=== PATIENT | male | born 1990 | race American Indian/Alaskan Native ===

== ENCOUNTER 2018-12-21 20:26 | Emergency (ER) | payer SELFPAY ==
[2018-12-21 20:35] VITALS: BP 143/81
[2018-12-21 21:29] LABS: Hematocrit 36.3 % (35.5-45.6); Hemoglobin 11.3 gm/dl (11.8-15.2); Mean Corpuscular HGB Conc 31 % (32-34); Platelet Count 218 K/mm3 (140-440); Red Blood Count 5.42 M/mm3 (3.65-5.03)
[2018-12-21 21:33] LABS: Mean Corpuscular Volume 67 fl (84-94)
[2018-12-21 21:34] LABS: Red Cell Distribution Width 22.2 % (13.2-15.2)
[2018-12-21 21:50] LABS: BUN/Creatinine Ratio 13; Blood Urea Nitrogen 12 mg/dL (9-20); Calcium 9.5 mg/dL (8.4-10.2); Hemolysis Index 7
[2018-12-22 01:07] LABS: Bilirubin,Urine NEG (Negative); Blood,Urine NEG (Negative); Color,Urine Yellow (Yellow); Mucus,Urine FEW /HPF; Protein,Urine <15 mg/dL mg/dL (Negative); RBC,Urine < 1.0 /HPF (0.0-6.0); Urobilinogen,Urine < 2.0 mg/dL (<2.0); WBC,Urine < 1.0 /HPF (0.0-6.0)
[2018-12-22] MEDS ORDERED: IBUPROFEN PO ONE (01:40)
[2018-12-22] MEDS ORDERED: IBUPROFEN ONE (01:42)
[2018-12-22] MEDS ORDERED: ULTRAM ONE (03:20)
[2018-12-22] MEDS ORDERED: ULTRAM PO ONE (03:21)
--- NOTE | 2018-12-22 03:54 | Emergency Department Report ---
ED General Adult HPI - General Chief complaint: Urogenital-Male Stated complaint: HERNIA ON GROIN AREA Time Seen by Provider: 12/22/18 02:41 Source: patient Mode of arrival: Ambulatory Limitations: No Limitations - History of Present Illness Initial comments: Pt is a 28 y/o aam with history of left inguinal hernia for past year states exacerbation for the past week with pain stays unable to reduce her home is no nausea no vomiting no fever no chills no constipation no diarrhea patient has mild left groin swelling patient is on ambulatory however pain is exacerbated by bending twisting lifting pain is reduced with nothing Onset/Timin -: year(s), unknown (exacerbation 1 week ) Location: pelvis (left groin ) Radiation: non-radiation Severity scale (0 -10): 4 Quality: sharp Consistency: constant Improves with: none Worsens with: movement Associated Symptoms: denies: fever/chills, nausea/vomiting Treatments Prior to Arrival: none - Related Data Previous Rx's Medication Instructions Recorded Last Taken Type traMADol [Ultram] 50 mg PO Q6HR PRN #12 tablet 12/22/18 Unknown Rx Allergies Allergy/AdvReac Type Severity Reaction Status Date / Time No Known Allergies Allergy Verified 12/22/18 03:38 ED Review of Systems ROS: Stated complaint: HERNIA ON GROIN AREA Other details as noted in HPI Constitutional: denies: chills, fever Eyes: denies: eye pain, eye discharge, vision change ENT: denies: ear pain, throat pain Respiratory: denies: cough, shortness of breath, wheezing Cardiovascular: denies: chest pain, palpitations Endocrine: no symptoms reported Gastrointestinal: denies: abdominal pain, nausea, vomiting, diarrhea, constipation, hematemesis, melena, hematochezia Genitourinary: other (left inquinal swelling pain ). denies: urgency, dysuria, frequency, hematuria, discharge, testicular pain, testicular mass Musculoskeletal: denies: back pain, joint swelling, arthralgia Skin: denies: rash, lesions Neurological: denies: headache, weakness, paresthesias Psychiatric: denies: anxiety, depression Hematological/Lymphatic: denies: easy bleeding, easy bruising ED Past Medical Hx - Past Medical History Previous Medical History?: No Additional medical history: HERNIA LEFT GROIN - Surgical History Additional Surgical History: RLL [facility] PINS 05/2018- NECK SURGERY 2011 - Social History Smoking Status: Current Every Day Smoker Substance Use Type: None - Medications Home Medications: Home Medications Medication Instructions Recorded Confirmed Last Taken Type traMADol [Ultram] 50 mg PO Q6HR PRN #12 tablet 12/22/18 Unknown Rx ED Physical Exam - General Limitations: No Limitations General appearance: alert, in no apparent distress - Head Head exam: Present: atraumatic, normocephalic - Eye Eye exam: Present: normal appearance, PERRL Pupils: Present: normal accommodation - ENT ENT exam: Present: mucous membranes moist - Neck Neck exam: Present: normal inspection - Respiratory Respiratory exam: Present: normal lung sounds bilaterally. Absent: respiratory distress, wheezes, stridor, chest wall tenderness - Cardiovascular Cardiovascular Exam: Present: regular rate, normal rhythm, normal heart sounds. Absent: rubs, gallop, clicks - GI/Abdominal GI/Abdominal exam: Present: soft, tenderness (Left inguinal tenderness mild swelling ), normal bowel sounds, hernia (left inquinal hernia reproducible, no thrill no bruit no erythema drainage no fever ). Absent: guarding, rebound, rigid, organomegaly, bruit, pulsatile mass - Rectal Rectal exam: Present: deferred - exam: Present: other (no thrill no bruit ). Absent: testicular tenderness, urethral discharge, scrotal swelling, vertical testicular lie - Extremities Exam Extremities exam: Present: normal inspection, normal capillary refill. Absent: full ROM, tenderness - Back Exam Back exam: Present: normal inspection, full ROM. Absent: tenderness, CVA tenderness (R), CVA tenderness (L), muscle spasm, paraspinal tenderness, vertebral tenderness, rash noted - Neurological Exam Neurological exam: Present: alert, oriented X3, CN II-XII intact, normal gait, reflexes normal - Psychiatric Psychiatric exam: Present: normal affect, normal mood - Skin Skin exam: Present: warm, dry, intact, normal color. Absent: rash ED Course Vital Signs 12/21/18 12/21/18 20:33 20:59 Temperature 98.1 F 98.1 F Pulse Rate 90 88 Respiratory 18 18 Rate Blood Pressure 143/81 143/81 O2 Sat by Pulse 98 98 Oximetry ED Medical Decision Making - Lab Data Result diagrams: 12/21/18 21:20 12/21/18 21:20 Labs 12/21/18 12/21/18 12/22/18 21:20 21:20 00:21 WBC 8.6 RBC 5.42 H Hgb 11.3 L Hct 36.3 MCV 67 L MCH 21 L MCHC 31 L RDW 22.2 H Plt Count 218 Sodium 139 Potassium 4.1 Chloride 102.1 Carbon Dioxide 29 Anion Gap 12 BUN 12 Creatinine 0.9 Estimated GFR > 60 BUN/Creatinine Ratio 13 Glucose 119 H Calcium 9.5 Urine Color Yellow Urine Turbidity Clear Urine pH 5.0 Ur Specific Commodore 1.016 Urine Protein <15 mg/dl Urine Glucose (UA) Neg Urine Ketones Neg Urine Blood Neg Urine Nitrite Neg Urine Bilirubin Neg Urine Urobilinogen < 2.0 Ur Leukocyte Esterase Neg Urine WBC (Auto) < 1.0 Urine RBC (Auto) < 1.0 U Epithel Cells (Auto) < 1.0 Urine Mucus Few - Radiology Data Radiology results: report reviewed, image reviewed FINAL REPORT PROCEDURE: CT ABDOMEN PELVIS WO CON TECHNIQUE: Computerized axial tomography of the abdomen and pelvis was performed without intravenous contrast. This study is performed without intravascular contrast material and its sensitivity for abdominal and pelvic pathology, including neoplasms, inflammation, abscess, free fluid, thrombosis, arterial dissection and infarction, is reduced compared with a contrast enhanced study. HISTORY: abd pain lt groin pain COMPARISON: No prior studies are available for comparison. FINDINGS: Visualized lower thorax: No significant abnormality. Liver: Normal size and attenuation. Spleen: Normal size and attenuation. Gallbladder and biliary system: Normal. Pancreas: Normal. Adrenals: Normal. Kidneys: There are no kidney stones or ureteral stones. There is no h ydronephrosis.. GI tract: There is no bowel obstruction, colitis or enteritis. There is scattered diverticula of the colon. The appendix is not discretely visible. There is no indirect evidence of appendicitis. Lymph nodes and mesentery: Normal. Vasculature: Normal. Bladder: Normal. Reproductive organs: Normal. Peritoneum: There is no ascites or free air, abscess or adenopathy.. Musculoskeletal structures: No significant abnormality. Other: There is a large left inguinal hernia containing omental fat only.. IMPRESSION: There are no kidney stones or ureteral stones. There is no hydronephrosis.. There is no bowel obstruction, colitis or enteritis. There is scattered diver ticula of the colon. The appendix is not discretely visible. There is no indirect evidence of appen dicitis. There is no ascites or free air, abscess or adenopathy.. There is a large left inguinal hernia containing omental fat only.. . Transcribed By: CO Dictated By: LAILA VALDEZ MD Electronically Authenticated By: LAILA VALDEZ MD Signed Date/Time: 12/22/18507 DD/ 5 TD/TT: 12/22/18505 - Medical Decision Making CT large left femoral hernia fat only , scattered diverticula CBC normal CMP normal UA normal there's no fever chills patient is tolerating by mouth intake there is no nausea vomiting however has reproducible plan referred to general surgery Ultram prn pain patient will return to emergency should symptoms worsen on unable to tolerate by mouth bowel movement patient verbalizes agreement and understanding of discharge plan patient DC'd to home in stable condition at this time. Critical care attestation.: If time is entered above; I have spent that time in minutes in the direct care of this critically ill patient, excluding procedure time. ED Disposition Clinical Impression: Hernia, inguinal, left Disposition: DC-01 TO HOME OR SELFCARE Is pt being admited?: No Does the pt Need Aspirin: No Condition: Stable Instructions: Inguinal Hernia (ED) Prescriptions: traMADol [Ultram] 50 mg PO Q6HR PRN #12 tablet PRN Reason: Pain Referrals: KRISHNA CALLAWAY MD [Staff Physician] - 3-5 Days Forms: Work/School Release Form(ED) Time of Disposition: 06:10
--- NOTE | 2018-12-22 05:08 | Cat Scan Report ---
FINAL REPORT PROCEDURE: CT ABDOMEN PELVIS WO CON TECHNIQUE: Computerized axial tomography of the abdomen and pelvis was performed without intravenous contrast. This study is performed without intravascular contrast material and its sensitivity for ab dominal and pelvic pathology, including neoplasms, inflammation, abscess, free fluid, thrombosis, art erial dissection and infarction, is reduced compared with a contrast enhanced study. HISTORY: abd pain lt groin pain COMPARISON: No prior studies are available for comparison. FINDINGS: Visualized lower thorax: No significant abnormality. Liver: Normal size and attenuation. Spleen: Normal size and attenuation. Gallbladder and biliary system: Normal. Pancreas: Normal. Adrenals: Normal. Kidneys: There are no kidney stones or ureteral stones. There is no hydronephrosis.. GI tract: There is no bowel obstruction, colitis or enteritis. There is scattered diverticula of the colon. The appendix is not discretely visible. There is no indirect evidence of appendicitis. Lymph nodes and mesentery: Normal. Vasculature: Normal. Bladder: Normal. Reproductive organs: Normal. Peritoneum: There is no ascites or free air, abscess or adenopathy.. Musculoskeletal structures: No significant abnormality. Other: There is a large left inguinal hernia containing omental fat only.. IMPRESSION: There are no kidney stones or ureteral stones. There is no hydronephrosis.. There is no bowel obstruction, colitis or enteritis. There is scattered diverticula of the colon. The appendix is not discretely visible. There is no indirect evidence of appendicitis. There is no ascites or free air, abscess or adenopathy.. There is a large left inguinal hernia containing omental fat only.. .
== END 2018-12-22 06:52 | disposition home or self-care (01) ==
LOC: ED 20:26
DX: K40.90 Unilateral inguinal hernia, without obstruction or gangrene, not specified as recurrent (principal); F17.200 Nicotine dependence, unspecified, uncomplicated
CPT/HCPCS: 36415; 74176; 80048; 81001; 85027

== ENCOUNTER 2019-01-02 07:32 | Emergency (ER) | payer SELFPAY ==
[2019-01-02 07:42] VITALS: BP 150/74
[2019-01-02] MEDS ORDERED: ULTRAM PO ONE (09:56)
--- NOTE | 2019-01-02 10:04 | Emergency Department Report ---
ED Abdominal Pain HPI - General Chief Complaint: Pain General Stated Complaint: HERNIA ON LEFT GROIN Time Seen by Provider: 01/02/19 09:41 Source: patient Mode of arrival: Ambulatory Limitations: No Limitations - History of Present Illness Initial Comments: 28-year-old male with a past medical history inguinal hernia for 2 years presents to the Hospital complaints of continued intermittent pain of his left and one hernia. Patient has a job performing landscaping and performs heavy lifting. He states that with lifting, prolonged standing, and movement his hernia gets worse and more painful. Hernia does reduce when lying supine. He denies nausea, vomiting, and having normal bowel movements. He has never followed up with surgery due to lack of insurance. Severity scale (0 -10): 7 - Related Data Previous Rx's Medication Instructions Recorded Last Taken Type Polyethylene Glycol 3350 [Miralax] 17 gm PO DAILY PRN #10 dose 01/02/19 Unknown Rx traMADol [Ultram 50 MG tab] 50 mg PO Q6HR PRN #20 tablet 01/02/19 Unknown Rx Allergies Allergy/AdvReac Type Severity Reaction Status Date / Time No Known Allergies Allergy Verified 12/22/18 03:38 ED Review of Systems ROS: Stated complaint: HERNIA ON LEFT GROIN Other details as noted in HPI Comment: All other systems reviewed and negative ED Past Medical Hx - Past Medical History Previous Medical History?: Yes Additional medical history: HERNIA LEFT GROIN - Surgical History Past Surgical History?: Yes Additional Surgical History: RLL [facility] AND PINS 05/2018- NECK SURGERY 2011 - Social History Smoking Status: Current Every Day Smoker Substance Use Type: Alcohol, Marijuana - Medications Home Medications: Home Medications Medication Instructions Recorded Confirmed Last Taken Type Polyethylene Glycol 3350 [Miralax] 17 gm PO DAILY PRN #10 dose 01/02/19 Unknown Rx traMADol [Ultram 50 MG tab] 50 mg PO Q6HR PRN #20 tablet 01/02/19 Unknown Rx ED Physical Exam - General Limitations: No Limitations - Other Other exam information: General: No limitations, patient is alert in no acute distress Head exam: Atraumatic, normocephalic Eyes exam: Normal appearance, pupils equal reactive to light, extraocular movements intact ENT: Moist mucous membrane Neck exam: Normal inspection, full range of motion, no meningismus nontender Respiratory exam: Clear to auscultation bilateral, no wheezes, rales, crackles Cardiovascular: Normal rate and rhythm, normal heart sounds Abdomen: Soft, nondistended, and nontender, with normal bowel sounds, no rebound, or guarding. Left direct inguinal hernia that is reducible. Extremity: Full range of motion normal inspection no deformity Back: Normal Inspection, full range of motion, no tenderness Neurologic: Alert, oriented x3, cranial nerves intact, no motor or sensory deficit Psychiatric: normal affect, normal mood Skin: Warm, dry, intact ED Course Vital Signs 01/02/19 07:39 Temperature 97.8 F Pulse Rate 86 Respiratory 20 Rate Blood Pressure 150/74 O2 Sat by Pulse 98 Oximetry ED Medical Decision Making - Medical Decision Making Patient has a chronic hernia for 2 years that is reducible. Patient Expresses frustration because he needs surgery but has not followed up due to lack of insurance. I reiterated when the hernia becomes emergent i.e. signs of obstruction and strangulation then there would be indication for emergent surgery. Tramadol will be provided for when necessary pain as well as with the laxative. Follow-up with surgery encouraged. - Differential Diagnosis hernia, incarceration, strangulation Critical Care Time: No Critical care attestation.: If time is entered above; I have spent that time in minutes in the direct care of this critically ill patient, excluding procedure time. ED Disposition Clinical Impression: Reducible left inguinal hernia Disposition: - TO HOME OR SELFCARE Is pt being admited?: No Does the pt Need Aspirin: No Condition: Stable Instructions: Inguinal Hernia (ED) Additional Instructions: Take the medication as prescribed. Follow up with your doctor or the clinic/doctor provided. Return if symptoms worsen as indicated by your discharge instructions. Wear a hernia belt as instructed you should be able to purchase one at a local drug store/pharmacy. Prescriptions: Polyethylene Glycol 3350 [Miralax] 17 gm PO DAILY PRN #10 dose PRN Reason: Constipation traMADol [Ultram 50 MG tab] 50 mg PO Q6HR PRN #20 tablet PRN Reason: Pain Referrals: KRISHNA CALLAWAY MD [Staff Physician] - 3-5 Days (surgeon ) Time of Disposition: 10:04
== END 2019-01-02 10:15 | disposition home or self-care (01) ==
LOC: ED 07:32
DX: K40.30 Unilateral inguinal hernia, with obstruction, without gangrene, not specified as recurrent (principal); F17.200 Nicotine dependence, unspecified, uncomplicated
CPT/HCPCS: 99282

== ENCOUNTER 2019-02-16 03:14 | Emergency (ER) | payer SELFPAY ==
[2019-02-16 03:19] VITALS: BP 135/98
== END 2019-02-16 10:46 | disposition left against medical advice (07) ==
LOC: ED 03:14
DX: K46.9 Unspecified abdominal hernia without obstruction or gangrene (principal); Z53.21 Procedure and treatment not carried out due to patient leaving prior to being seen by health care provider

== ENCOUNTER 2020-11-02 00:44 | Emergency (ER) | payer OTHER ==
[2020-11-02 01:04] VITALS: BP 130/80
[2020-11-02] MEDS ORDERED: ACETAMINOPHEN 500 MG TAB PO ONE (03:04)
[2020-11-02] MEDS ORDERED: ONDANSETRON 4 MG/2 ML INJ IV ONE (05:36)
[2020-11-02] MEDS ORDERED: MORPHINE 4 MG/1 ML INJ IV ONE (05:36)
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
[2020-11-02 06:08] LABS: Hematocrit 39.9 % (35.5-45.6); Hemoglobin 13.2 gm/dl (11.8-15.2); Mean Corpuscular HGB Conc 33 % (32-34); Mean Corpuscular Volume 84 fl (84-94); Platelet Count 169 K/mm3 (140-440); Red Blood Count 4.77 M/mm3 (3.65-5.03); Red Cell Distribution Width 17.3 % (13.2-15.2)
[2020-11-02 06:28] LABS: Alanine Aminotransferase 18 units/L (7-56); BUN/Creatinine Ratio 14; Blood Urea Nitrogen 14 mg/dL (9-20); Calcium 9.6 mg/dL (8.4-10.2); Hemolysis Index 16
[2020-11-02 06:56] LABS: Band Neutrophils # (Manual) 0.8 K/mm3; Total Cells Counted 100
[2020-11-02 06:57] LABS: Anisocytosis Few; Ovalocytes Few; Platelet Estimate Consistent w Auto; Schistocytes Few; Tear Drop Cells Rare
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
[2020-11-02] MEDS ORDERED: CYCLOBENZAPRINE 10 MG TAB PO ONE (07:21)
[2020-11-02] MEDS ORDERED: IBUPROFEN 800 MG TAB PO ONE (07:21)
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
== END 2020-11-02 08:43 | disposition home or self-care (01) ==
LOC: ED 00:44
DX: K57.92 Diverticulitis of intestine, part unspecified, without perforation or abscess without bleeding (principal); K40.90 Unilateral inguinal hernia, without obstruction or gangrene, not specified as recurrent; D72.829 Elevated white blood cell count, unspecified; F17.200 Nicotine dependence, unspecified, uncomplicated; F12.10 Cannabis abuse, uncomplicated; Z79.899 Other long term (current) drug therapy; V49.49XA Driver injured in collision with other motor vehicles in traffic accident, initial encounter; Y93.89 Activity, other specified; Y92.488 Other paved roadways as the place of occurrence of the external cause; Y99.8 Other external cause status
CPT/HCPCS: 36415; 71101; 74177; 80053; 83690; 85007; 85025; 96374; 96375; 99284; J2270; J2405; Q9967